=== PATIENT | female | born 1955 | race Caucasian/White ===

== ENCOUNTER → 2025-06-04 | Outpatient (CLI) | payer MEDICARE, OTHER ==
[~2025-06-04] MED LIST: Advil200 M1 PO; INSDET100 SC; INSUASPI SC; LISI20 PO; METF500 PO; METO50 PO; Zocor20 MG PO
[2025-06-04 18:02] LABS: Creatinine, Urine Random 80.0 mg/dL (27.00-270.00); Microalb/Creat Ratio UR, Rand 9.925 mg/g (0.000-30.000); Microalbumin, Random Urine 7.94 mg/L (0.000-20.000)
== END ==
LOC: LAB 12:45 → LAB SHORT 12:45 → LAB FUT 03-06 11:30
PROVIDERS: Internal Medicine
DX: E11.69 Type 2 diabetes mellitus with other specified complication (principal)
CPT/HCPCS: 82043; 82570